=== PATIENT | female | born 1990 | race Asian ===

== ENCOUNTER → 2016-05-22 | Outpatient (CLI) | payer OTHER ==
[~2016-05-22] MED LIST: PRENTAB26 PO
[2016-05-22 14:42] LABS: HEMATOCRIT 35.2 % (37-47)
[2016-05-22 16:16] LABS: URINE APPEARANCE CLEAR (CLEAR); URINE BILIRUBIN NEG (NEG); URINE COLOR YELLOW; URINE EPITHELIAL CELL AUTO >30 /lpf (0-5); URINE NITRITE NEG (NEG); URINE PH 6.5 (4.5-7.5); URINE SPECIFIC GRAVITY 1.013 (1.000-1.030); UROBILINOGEN NEG (NEG)
[2016-05-22 16:34] LABS: MANUAL MICROSCOPIC REQUIRED? NO; REVIEW REQ? NO
[2016-05-22 16:37] LABS: GTGD 50 Grams
== END | disposition home or self-care (01) ==
LOC: C.LAB1850 12:21
PROVIDERS: ATTEND Obstetrics & Gynecology
DX: Z34.82 Encounter for supervision of other normal pregnancy, second trimester (principal)

== ENCOUNTER → 2016-07-10 | Outpatient (CLI) | payer OTHER | END | disposition home or self-care (01) | LOC: C.LABSPEC 13:25 | PROVIDERS: ATTEND Obstetrics & Gynecology | DX: Z34.03 Encounter for supervision of normal first pregnancy, third trimester (principal) ==

== ENCOUNTER 2016-08-11 02:53 | Outpatient (CLI) | payer OTHER ==
[~2016-08-11] VITALS: Ht 165.1 cm; Wt 76.0 kg
[2016-08-11 06:35] VITALS: Ht 165.1 cm; Wt 76.0 kg
--- NOTE | 2016-08-12 11:27 | EDITING REQUIRED CODING QUERY ---
DIAGNOSIS NEEDED To promote full compliance with coding requirements relating to patient care, physician participation is requested in all cases of sunglass clip attacher uncertainty. Please assist us with the question(s) below: Coding Question: The patient received care in labor and delivery on 08/11/16 as noted within the record. Please document the diagnosis that is being addressed by the medication/treatment. Provider Response: DIAGNOSIS: False labor at term Thank you for your assistance, Gilda Carmen - Band Cutting Machine Operator
== END 2016-08-11 06:39 | disposition home or self-care (01) ==
LOC: C.LD 02:53 → C.OPB 02:53
PROVIDERS: ATTEND Obstetrics & Gynecology
DX: Z34.03 Encounter for supervision of normal first pregnancy, third trimester (principal); Z3A.39 39 weeks gestation of pregnancy

== ENCOUNTER 2016-08-11 10:23 | Inpatient (IN) | payer OTHER ==
[~2016-08-11] VITALS: Ht 167.6 cm; Wt 76.4 kg
[2016-08-11 11:34] LABS: HEMATOCRIT 35.9 % (37-47); MEAN CELL VOLUME 82.9 fL (80-100); MEAN CORPUSCULAR HEMOGLOBIN 28.2 pg (25-34); MEAN PLATELET VOLUME 12.3 fL (7.4-10.4); PLATELET COUNT 152 K/uL (130-400); RED BLOOD COUNT 4.33 M/uL (4.2-5.4); WHITE BLOOD COUNT 12.05 K/uL (4.8-10.8)
[2016-08-11] MEDS ORDERED: BUPIVACAINE 0.25% 30 ML VIAL ONE (11:52)
[2016-08-11] MEDS ORDERED: EpHEDrine SULFATE INJ 50 MG/ML AMP ONE (11:52)
[2016-08-11] MEDS ORDERED: FENTANYL CITRATE INJ 50 MCG/1 ML 2 ML VIAL ONE (11:53)
[2016-08-11] MEDS ORDERED: FENTANYL 2MCG/ML ROPIV 1.25MG/ML 100ML BAG EPI ONE (11:54)
[2016-08-11] MEDS ORDERED: OXYTOCIN 30 UNITS/500ML NSS IV ONE (11:54)
[2016-08-11 12:01] VITALS: Ht 167.6 cm; Wt 76.4 kg
[2016-08-11] MEDS ORDERED: LACTATED RINGER'S 1000ML 500 ML IV PRN (12:03)
[2016-08-11] MEDS ORDERED: NALOXONE HCL INJ 1 MG in SODIUM CHLORIDE 0.9% 1000ML 1,000 ML IV PRN (12:03)
[2016-08-11] MEDS ORDERED: DiphenhydrAMINE HCL 50 MG/ML VIAL IV PRN (12:15)
[2016-08-11] MEDS ORDERED: PROMETHAZINE HCL INJ 12.5 MG in SODIUM CHLORIDE 0.9% 50ML 50 ML IV PRN (12:15)
[2016-08-11] MEDS ORDERED: NALBUPHINE HCL INJ 10 MG/ML AMP IV PRN (12:15)
[2016-08-11] MEDS ORDERED: ONDANSETRON INJ 2 MG/ML 2 ML VIAL IV PRN (12:15)
[2016-08-11] MEDS ORDERED: FENTANYL 2MCG/ML ROPIV 1.25MG/ML 100ML BAG EPI PRN (12:15)
[2016-08-11] MEDS ORDERED: EpHEDrine SULFATE INJ 50 MG/ML AMP IV PRN (12:15)
[2016-08-11] MEDS ORDERED: NALOXONE HCL INJ 0.4 MG/1 ML VIAL/CARP IV PRN (12:15)
[2016-08-11] MEDS ORDERED: ACETAMINOPHEN/CODEINE 300/30MG TAB PO PRN ×2 (19:00)
[2016-08-11] MEDS ORDERED: OXYTOCIN 30 UNITS/500ML NSS IV PRN (19:00)
[2016-08-11] MEDS ORDERED: SUPERCREAM 0.870 % 15GM JAR EXT PRN (19:00)
[2016-08-11] MEDS ORDERED: BENZOCAINE 20% AER SPR 82.5 GM CAN EXT PRN (19:00)
[2016-08-11] MEDS ORDERED: ACETAMINOPHEN 325 MG TAB PO PRN (19:00)
[2016-08-11] MEDS ORDERED: LANOLIN OINT EXT PRN ×2 (19:00)
[2016-08-11] MEDS: DOCUSATE SODIUM 100 MG CAP PO SCH (20:00)
--- NOTE | 2016-08-11 20:53 | Anesthesia Procedure Note ---
Anesthesia Epidural Removal Nt Date & Time Aug 11, 2016 at 20:53 Vital Signs Pain Intensity: 0.0 Notes Mental Status: alert / awake / arousable, participated in evaluation Nausea / Vomiting: adequately controlled Pain: adequately controlled Airway Patency, RR, SpO2: stable & adequate BP & HR: stable & adequate Hydration State: stable & adequate Neuraxial Anesthesia: was administered Anesthetic Complications: no major complications apparent, pt satisfied with anesthetic care Epidural: removed without complications, with tip intact
[2016-08-11 21:25] VITALS: BP 144/77; PULSE 120; TEMP 36.7
[2016-08-11] MEDS: IBUPROFEN 600 MG TAB PO PRN (22:44)
[2016-08-11 23:35] VITALS: BP 125/80; PULSE 90; TEMP 37.2
--- NOTE | 2016-08-12 00:52 | DELIVERY SUMMARY ---
DATE OF OPERATION: 08/11/2016 The patient is a 26-year-old 1, P0 female, EDC of 08/05/2016, who presented in active labor. She received epidural analgesia. She progressed to full dilation following rupture of membranes. There was thin meconium present at that time. She pushed effectively over intact perineum for delivery of a viable female . Mouth and nasopharynx were suctioned on the perineum. The rest of the infant delivered easily. It was placed on mother's abdomen for further evaluation and stimulation. There was spontaneous crying and the infant was moving all 4 limbs. The cord was clamped and cut. The placenta was expressed intact with a 3-vessel cord. A second degree perineal laceration was repaired with 3-0 chromic and 2-0 chromic in the usual fashion. Rectal exam after the repair revealed no tears and no stitches in the rectal mucosa. Estimated blood loss was 300 mL. Mother and were doing well after delivery. I attest to the content of the Intraoperative Record and any orders documented therein. Any exceptio ns are noted below.
[2016-08-12] MEDS: IBUPROFEN 600 MG TAB PO PRN ×4 (04:24→20:25)
[2016-08-12 05:07] VITALS: BP 104/62; PULSE 104; TEMP 36.7
--- NOTE | 2016-08-12 07:39 | Progress Note ---
Subjective Aug 12, 2016. Subjective conversation w/ patient, physical exam Ambulation: ambulating normally Voiding: no voiding problems Passing Gas: Yes Diet Tolerance: Regular Diet Lochia: Moderate Feeding Type: Breast Feeding Review of Systems Constitutional: No chills, No fatigue, No fever, No problem reported, No sweats , No weakness, No weight loss Abdomen: No GI bleeding, No constipation, No diarrhea, No nausea, No pain, No problem reported, No vomiting Objective Vital Signs Date Time Temp Pulse Resp B/P Pulse Ox O2 Delivery O2 Flow Rate FiO2 08/12/16 05:07 36.7 104 16 104/62 Room Air 08/11/16 23:35 37.2 90 20 125/80 Room Air 08/11/16 23:35 Room Air 08/11/16 21:25 Room Air 08/11/16 21:25 36.7 120 20 144/77 Room Air Physical Exam General Appearance: WELL-APPEARING, NO APPARENT DISTRESS Abdomen: non tender, soft Fundus: Firm, Non-Tender, Relation to Umbilicus Extremities: no calf tenderness Laboratory Results Last 24 Hours Test 08/11/16 11:25 08/12/16 05:00 White Blood Count 12.05 K/uL Red Blood Count 4.33 M/uL Hemoglobin 12.2 g/dL 9.8 g/dL Hematocrit 35.9 % 29.0 % Mean Corpuscular Volume 82.9 fL Mean Corpuscular Hemoglobin 28.2 pg Mean Corpuscular Hemoglobin Concent 34.0 g/dl RDW Standard Deviation 40.1 fL RDW Coefficient of Variation 13.2 % Platelet Count 152 K/uL Mean Platelet Volume 12.3 fL Assessment and Plan Day#: 1 Continue Routine Care: stable course continue current care plan
[2016-08-12 07:54] VITALS: BP 126/72; PULSE 80; TEMP 36.6; O2SAT 97
[2016-08-12 08:23] VITALS: O2SAT 97
[2016-08-12] MEDS: DOCUSATE SODIUM 100 MG CAP PO SCH ×2 (08:37→20:16)
[2016-08-12] MEDS: PRENATAL VITAMIN TAB PO SCH (08:37)
[2016-08-12] MEDS: FERROUS SULFATE 325 MG TAB PO SCH (08:37)
[2016-08-12 13:14] VITALS: BP 122/83; PULSE 79; TEMP 36.4; O2SAT 97
[2016-08-12 16:30] VITALS: BP 124/84; PULSE 85; TEMP 36.8; O2SAT 98
[2016-08-12] MEDS ORDERED: BISACODYL 5 MG TABEC PO SCH (20:00)
[2016-08-13 00:15] VITALS: BP 114/74; PULSE 81; TEMP 36.6; O2SAT 98
[2016-08-13] MEDS: IBUPROFEN 600 MG TAB PO PRN ×2 (03:39→08:19)
--- NOTE | 2016-08-13 07:29 | Progress Note ---
Subjective Aug 13, 2016. Subjective conversation w/ patient, physical exam Ambulation: ambulating normally Voiding: no voiding problems Passing Gas: Yes Diet Tolerance: Regular Diet Lochia: Moderate Feeding Type: Breast Feeding Review of Systems Constitutional: No chills, No fever Respiratory: No cough Cardiac: No chest pain Abdomen: No nausea, No vomiting Objective Vital Signs Date Time Temp Pulse Resp B/P Pulse Ox O2 Delivery O2 Flow Rate FiO2 08/13/16 00:15 36.6 81 16 114/74 98 Room Air 08/13/16 00:15 98 Room Air 08/12/16 16:30 36.8 85 16 124/84 98 Room Air 08/12/16 16:30 98 Room Air 08/12/16 13:19 Room Air 08/12/16 13:14 36.4 79 18 122/83 97 Room Air 08/12/16 08:40 Room Air 08/12/16 08:23 97 Room Air 08/12/16 07:54 36.6 80 18 126/72 97 Room Air Physical Exam General Appearance: WELL-APPEARING, NO APPARENT DISTRESS Respiratory/Chest: no respiratory distress, no accessory muscle use Cardiovascular: no edema Abdomen: non tender, soft Fundus: Firm Extremities: no calf tenderness Assessment and Plan Day#: 2 Continue Routine Care: Ready for D/C today
--- NOTE | 2016-08-13 07:30 | Discharge Instructions ---
Discharge Instructions Date of Service Aug 13, 2016. Admission Reason for Admission: R/O Labor Discharge Discharge Diagnosis / Problem: Vaginal delivery Discharge Goals Goal(s): Routine recovery after delivery Activity Recommendations Activity Limitations: per Instructions/Follow-up section . Instructions / Follow-Up Instructions / Follow-Up ACTIVITY RECOMMENDATIONS: * Gradual return to full activity over the next 2-3 weeks. * No lifting - nothing heavier than baby over the next 2-3 weeks. * Do not engage in vigorous exercise, sexual activity or sports until cleared by your physician. * Do not drive or operate any motorized equipment until cleared by your physician. * You may shower/bathe daily. MEDICATIONS: For discomfort or pain, you may use Acetaminophen (Tylenol), Ibuprofen (Advil), or Naproxen (Aleve) following the package directions. For constipation you may use Colace following the package directions. BREAST CARE: If you are not breast feeding: * Wear a supportive bra 24 hours a day for one to two weeks. * Avoid stimulating your breasts and nipples as much as possible during the first few weeks after delivery. * When taking a shower, have the warm water hit your back, not breasts. * When your breasts feel full, apply ice packs. Usually three to four times a day helps ease the discomfort. * Take a mild pain medication (Tylenol / Motrin) when you are uncomfortable. If breast feeding: * Use breast milk to lubricate nipples. Lansinoh cream may be used for sore nipples. You do not need to remove cream prior to breast feeding. If using a different brand of cream, check the label for directions regarding removal of cream prior to nursing. * Wear a supportive bra. * If having problems with breasts or breast feeding, call a sap bw consultant or your health care provider. EPISIOTOMY CARE: After delivery, if you have an episiotomy (stitches), the following steps will ease discomfort and aid healing. * For the first 24 hours after delivery, place ice packs next to your episiotomy to help reduce swelling. * After the first 24 hour-period, sitz baths, either portable or in the tub, are suggested. A shower with a shower arm sprayed over the episiotomy may be comforting. * Mariann care should be done after each voiding and bowel movement. Squirt warm water from a plastic bottle over the perineum (region of the body between the anus and urinary opening) and pat dry. * Use Dermoplast to ease discomfort. Shake container. [place] directly over the episiotomy. Place a Tucks on a clean sanitary pad next to your episiotomy. SPECIAL CARE INSTRUCTIONS: When you are discharged from the hospital, it is important for you to follow the instructions listed below: * During the first week at home, you should be able to care for yourself and your baby. In addition, the usual light household activities are encouraged. * Limit your activities to the way you feel. Do not try to clean the house or move furniture. Be sensible. * If you actively engage in sports and have done so up until the time of your delivery, you may resume these activities as soon as you feel able. This may take up to one month or even longer. Use good judgment. * Continue to take your vitamins for at least six weeks after the of your baby. * Your diet need not be limited unless you were on a special diet before your delivery. Breast-feeding mothers need around 2500 calories per day and at least 64-80 ounces of fluid per day (8 to 10 glasses). * You should eat foods from the four major food groups. Crash diets or fad diets are to be avoided. Eating lean meats, fresh fruits and vegetables, low-fat dairy products, high fiber foods and a regular exercise program, will help you get back to your pre- weight without putting your health at risk. * Constipation is sometimes a problem after delivery. Take a mild laxative as needed. If breast feeding, Milk of Magnesia is acceptable to use. You may use a suppository or Fleets enema if no episiotomy. * A daily shower or tub bath is suggested. Be sure to thoroughly and gently dry the perineum. * A bloody vaginal discharge will usually continue until around four weeks post . A small amount of bleeding may continue for as long as six weeks. Vaginal discharge changes from the bright red bleeding after delivery to pink then brownish and finally yellowish-pink before becoming white and disappearing. * Bleeding may increase with activity. Your first period may come in 4-8 weeks. If you are breast feeding, your period may be delayed even longer. * Lakin (sex) can begin whenever both you and your partner feel comfortable and do not have any form of genital infection. It is recommended that you wait at least six weeks for internal and external healing to occur. If you have questions, please talk to your health care practitioner. A condom should be used to prevent infection and . * Foreplay, gentle intercourse and lubrication is very important the first several times to prevent pain. A water-based lubricant such as K-Y jelly or Astroglide may be used. * If you have RH negative blood and your baby is RH positive, you will receive RHOGAM by injection prior to discharge. The nurse will give you a card to keep with you that has the date and place that you received RHOGAM after delivery. * During your care, you had a Rubella screen done to check for the presence of rubella antibodies in your blood. If your test was negative, you will receive a Rubella vaccine prior to discharge. This vaccine may cause a fever, soreness at the injection site and flu-like symptoms. If these symptoms persist, notify your health care practitioner. is not advised for one month after a Rubella vaccine. * Verbalizes understanding of car seat law as reviewed with patient nursing. * Car Seat hand-out given and reviewed with patient by nursing. * Shaken baby information reviewed with patient by nursing. Call you doctor if: * Heavy bleeding (saturating several pads an hour) or passing clots the size of your fist. * A fever >101 degrees F (38.3 degrees C) on two occasions four hours apart and /or chills. * Unusual pain in the pelvic or vaginal areas. * "Baby Blues" lasting longer than two weeks. If you have any questions or concerns, call your health care practitioner at . FOLLOW UP VISIT: * Please call the office at to schedule a 6 week examination. It is important you keep this appointment. It is important for you to make arrangements for either yearly or twice yearly check-ups thereafter. Current Hospital Diet Patient's current hospital diet: Regular OB Diet Discharge Diet Recommended Diet: Regular Diet Pending Studies Studies pending at discharge: no Medical Emergencies . Who to Call and When: Medical Emergencies: If at any time you feel your situation is an emergency, please call 911 immediately. . Non-Emergent Contact Non-Emergency issues call your: Primary Care Provider . . "Provider Documentation" section prepared by aPu Love. VTE Core Measure Inpt VTE Proph given/why not?: Treatment not indicated
[2016-08-13] MEDS: FERROUS SULFATE 325 MG TAB PO SCH (08:19)
[2016-08-13] MEDS: PRENATAL VITAMIN TAB PO SCH (08:19)
[2016-08-13] MEDS: DOCUSATE SODIUM 100 MG CAP PO SCH (08:20)
[2016-08-13 09:25] VITALS: BP 120/79; PULSE 76; TEMP 36.6; O2SAT 98
[2016-08-13 13:42] VITALS: BP_DIAS 79; PULSE 76; TEMP 36.6
== END 2016-08-13 13:47 | disposition home or self-care (01) | DRG 775 ==
LOC: C.OPB 10:23 → C.LD 10:23 → C.OPB 11:08 → C.OBG 21:38
PROVIDERS: ADMIT Obstetrics & Gynecology; ATTEND Obstetrics & Gynecology
PROC: 0KQM0ZZ Repair Perineum Muscle, Open Approach (ICD-10-PCS; principal; 2016-08-11)
PROC: 10E0XZZ Delivery of Products of Conception, External Approach (ICD-10-PCS; principal; 2016-08-11)
DX: O48.0 Post-term pregnancy (principal); Z37.0 Single live birth; O77.0 Labor and delivery complicated by meconium in amniotic fluid; O70.1 Second degree perineal laceration during delivery; Z3A.41 41 weeks gestation of pregnancy